=== PATIENT | male | born 1930 | race Caucasian/White ===

== ENCOUNTER 2016-11-02 21:31 | Emergency (ER) | payer MEDICARE ==
[2016-11-02] MEDS ORDERED: MORPHINE SULFATE 4 MG INJ IV ONE (21:41)
[2016-11-02] MEDS ORDERED: Sodium Chloride 0.9% 1000 ML 1,000 ML IV SCH (21:45)
--- NOTE | 2016-11-02 21:46 | ERPHSYRPT ---
- History of Present Illness Time Seen by Provider: 11/02/16 21:43 Historian: patient Exam Limitations: no limitations Physician History: This 86-year-old white male with history of abdominal aortic aneurysm with repair 2, hypercholesterolemia, high blood pressure, COPD, prostate cancer He arrives with complaint of right lower quadrant abdominal pain described as a sharp crampy states it feels just like when he had an aneurysm in the past symptoms for 1-1/2 hours. Patient has not had any vomiting no melena no hematochezia he has no chest pain no shortness of breath. Past medical history includes anemia, hypercholesterolemia, high blood pressure , COPD, prostate cancer Past surgical history includes aneurysmal repair 2 Timing/Duration: today (1-1/2 hours ago) Activities at Onset: none Quality: cramping Abdominal Pain Onset Location: RLQ Pain Radiation: no radiation Severity of Pain-Max: moderate Severity of Pain-Current: moderate Modifying Factors: Improves With: nothing Associated Symptoms: denies symptoms, No back, No chest pain, No diaphoresis, No diarrhea, No fever/chills, No fatigue, No headache, No heartburn, No loss of appetite, No nausea, No neck pain, No rash, No shortness of breath, No syncope, No testicular pain, No vomiting Previous symptoms: same symptoms as today (history of aneurysm in the past with repair) Allergies/Adverse Reactions: No Known Drug Allergies Allergy (Verified 11/02/16 21:46) Home Medications: Amlodipine Besylate 5 mg [Norvasc 5 mg] 5 mg PO DAILY 08/17/13 [History] PANTOPRAZOLE 40 mg Tablet [Protonix 40MG Tablet] 40 mg PO BID 08/17/13 [ History] Simvastatin [Zocor] 20 mg PO HS 08/17/13 [History] Fluticasone/Salmeterol 500/50* [Advair 500-50 Diskus] 1 puff IH BID 02/28/14 [History] Aspirin 81 mg PO DAILY 10/10/14 [History] Clopidogrel Bisulfate 75 mg [PLAVIX 75 MG Tablet] 75 mg PO DAILY 10/10/14 [History] Hx Tetanus, Diphtheria Vaccination/Date Given: No Hx Influenza Vaccination/Date Given: Yes Hx Pneumococcal Vaccination/Date Given: Yes - Review of Systems Constitutional: No Fever, No Chills Eyes: No Symptoms Ears, Nose, & Throat: No Symptoms Respiratory: No Cough, No Dyspnea Cardiac: No Chest Pain, No Edema, No Syncope Abdominal/Gastrointestinal: Abdominal Pain (right lower quadrant abdominal pain) , No Nausea, No Vomiting, No Diarrhea, No Constipation, No Hematemesis, No Hematochezia, No Melena, No Dysphagia, No Appetite Changes Genitourinary Symptoms: No Dysuria Musculoskeletal: No Back Pain, No Neck Pain Skin: No Rash Neurological: No Dizziness, No Focal Weakness, No Sensory Changes Psychological: No Symptoms Endocrine: No Symptoms All Other Systems: Reviewed and Negative - Past Medical History Pertinent Past Medical History: Yes Neurological History: No Pertinent History ENT History: No Pertinent History Cardiac History: Aneurysm, High Cholesterol, Hypertension Respiratory History: COPD Endocrine Medical History: No Pertinent History Musculoskeletal History: Arthritis GI Medical History: No Pertinent History History: No Pertinent History Psycho-Social History: No Pertinent History Male Reproductive Disorders: Prostate Cancer - Past Surgical History Past Surgical History: Yes Neuro Surgical History: No Pertinent History Cardiac: No Pertinent History Respiratory: No Pertinent History Gastrointestinal: No Pertinent History Genitourinary: No Pertinent History Musculoskeletal: No Pertinent History Male Surgical History: No Pertinent History Other Surgical History: ANEURYSM REPAIR X2 - Social History Smoking Status: Former smoker How long have you smoked: 70 years Exposure to second hand smoke: No Drug Use: none Patient Lives Alone: No - Nursing Vital Signs Nursing Vital Signs: Initial Vital Signs Temperature 97.9 F Temperature Source Oral Pulse Rate 72 Respiratory Rate 16 Blood Pressure [Left Arm] 90/61 Pain Intensity 2 - Physical Exam General Appearance: mild distress Eye Exam: PERRL/EOMI, eyes nml inspection Ears, Nose, Throat Exam: normal ENT inspection, pharynx normal, moist mucous membranes Neck Exam: normal inspection, non-tender, supple, full range of motion Respiratory Exam: normal breath sounds, lungs clear, No respiratory distress Cardiovascular Exam: regular rate/rhythm, normal heart sounds Gastrointestinal/Abdomen Exam: soft, normal bowel sounds, tenderness (right lower quadrant tenderness), No guarding, No rebound Back Exam: normal inspection, normal range of motion, No CVA tenderness, No vertebral tenderness Extremity Exam: normal inspection, normal range of motion, pelvis stable Neurologic Exam: alert, oriented x 3, cooperative, normal mood/affect, nml cerebellar function, sensation nml, No motor deficits Skin Exam: normal color, warm, dry SpO2 Interpretation: normal (91%) - Course Nursing assessment & vital signs reviewed: Yes Ordered Tests: Active Orders 24 hr Category Date Time Status IV Insertion STAT Care 11/02/16 21:41 Active IV Insertion STAT Care 11/02/16 21:43 Active ABDOMEN AND PELVIS W/0 CONTRAS [CT] Stat Exams 11/02/16 21:42 Taken AMYLASE Stat Lab 11/02/16 21:45 Completed CBC W DIFF Stat Lab 11/02/16 21:45 Completed CMP Stat Lab 11/02/16 21:45 Completed LIPASE Stat Lab 11/02/16 21:45 Completed UA W/RFX UR CULTURE Stat Lab 11/02/16 21:41 Uncollected Medication Summary Generic Name Dose Route Start Last Admin Trade Name Freq PRN Reason Stop Dose Admin Sodium Chloride 1,000 mls @ 50 mls/hr 11/02/16 21:45 11/02/16 21:53 Sodium Chloride 0.9% 1000 Ml IV 12/02/16 21:44 50 mls/hr .Q20H GONSALO Administration Discontinued Medications Generic Name Dose Route Start Last Admin Trade Name Freq PRN Reason Stop Dose Admin Morphine Sulfate 4 mg 11/02/16 21:41 11/02/16 21:52 Morphine Sulfate 4 Mg Inj IV 11/02/16 21:42 4 mg STAT ONE Administration Morphine Sulfate Confirm 11/02/16 21:50 Morphine Sulfate 4 Mg Inj Administered 11/02/16 21:51 Dose 4 mg .ROUTE .STK-MED ONE Ondansetron HCl 4 mg 11/02/16 21:49 11/02/16 21:53 Zofran 4 Mg/2 Ml Vial IV 11/02/16 21:50 4 mg STAT ONE Administration Ondansetron HCl Confirm 11/02/16 21:50 Zofran 4 Mg/2 Ml Vial Administered 11/02/16 21:51 Dose 4 mg .ROUTE .STK-MED ONE Lab/Rad Data: Laboratory Result Diagrams 11/02/16 21:45 11/02/16 21:45 Laboratory Results 11/02/16 11/02/16 Range/Units 21:45 21:45 WBC 7.2 (4.0-10.5) K/mm3 RBC 4.38 (4.1-5.6) M/mm3 Hgb 14.4 (12.5-18.0) gm/dl Hct 44.0 (42-50) % MCV 100.5 H (78-100) fl MCH 32.9 H (26-32) pg MCHC 32.7 (32-36) g/dl RDW 14.6 H (11.5-14.0) % Plt Count 154 (150-450) K/mm3 MPV 10.2 H (6-9.5) fl Gran % 72.2 H (36.0-66.0) % Lymphocytes % 18.0 L (24.0-44.0) % Monocytes % 8.9 (0.0-12.0) % Eosinophils % 0.6 (0.00-5.0) % Basophils % 0.3 (0.0-0.4) % Basophils # 0.02 (0-0.4) Sodium 142 (136-145) mEq/L Potassium 4.0 (3.5-5.1) mEq/L Chloride 105 (98-107) mEq/L Carbon Dioxide 26.4 (21-32) mEq/L Anion Gap 14.4 (5-15) MEQ/L BUN 27 H (9-20) mg/dL Creatinine 1.22 (0.55-1.30) mg/dl Estimated GFR 60 ML/MIN Glucose 105 (70-110) MG/DL Calcium 9.3 (8.5-10.1) mg/dL Total Bilirubin 0.5 (0.2-1.0) mg/dL AST 18 (15-37) U/L ALT 14 (12-78) U/L Alkaline Phosphatase 104 (46-116) U/L Serum Total Protein 7.4 (6.4-8.2) gm/dL Albumin 4.1 (3.4-5.0) g/dL Amylase 61 (25-115) U/L Lipase 95 (73-393) U/L - Progress Progress: improved Progress Note: 11/02/16 23:08 78-year-old white male with history of to aneurysmal repair surgeries arrives with complaints of right lower quadrant abdominal pain for 1-1/2 hours no nausea no vomiting no fever patient's CT of the abdomen done without contrast shows a impression 1 consistent with low-grade partial bowel obstruction, to diverticulosis 3 dilatation of the entire thoracic abdominal aorta, for left common iliac artery aneurysm 5 right common iliac artery stents 6 right nephrolithiasis 7 cholelithiasis patient's white count is normal hemoglobin 14.8 hematocrit 44 chemistry is normal amylase and lipase within normal limits patient has not provided a urine He does state that his pain was 4-5 on arrival and now is around 2. Patient does state he has not been having vomiting or diarrhea because of his rather complex history of with 2 previous aneurysmal surgeries in the past Will discuss the case with [facility] one call and Dr. Castaneda. 11/02/16 23:49 CT of the abdomen and pelvis as noted above. Patient's family doctor is Dr. Castaneda at [facility]. I contacted Dr. Narayan on-call at [facility] one call service. And discussed the case with Dr. Pathak He has accepted the patient with diagnosis of right lower quadrant pain, partial small bowel obstruction. One call service will call back with bed - Departure Time of Disposition: 23:51 Departure Disposition: Transfer ([facility] Dr Narayan) Clinical Impression: History of abdominal aortic aneurysm (AAA), Partial small bowel obstruction Abdominal pain Qualifiers: Abdominal location: right lower quadrant Qualified Code(s): R10.31 - Right lower quadrant pain Condition: Fair Critical Care Time: No Referrals: MYRNA CASTLE MD [Primary Care Provider] -
[2016-11-02 21:49] LABS: BASOPHIL % 0.3 % (0.0-0.4); Eosinophil % 0.6 % (0.00-5.0); Granulocytes % 72.2 % (36.0-66.0); Mean Cell Volume 100.5 fl (78-100); Mean Corpuscular Hemoglobin 32.9 pg (26-32); Mean Platelet Volume 10.2 fl (6-9.5); Monocytes % 8.9 % (0.0-12.0); Platelet Count 154 K/mm3 (150-450); Red Blood Count 4.38 M/mm3 (4.1-5.6); Red Cell Distribution Width 14.6 % (11.5-14.0); White Blood Count 7.2 K/mm3 (4.0-10.5)
[2016-11-02] MEDS ORDERED: Zofran 4 MG/2 ML VIAL IV ONE (21:49)
[2016-11-02] MEDS ORDERED: MORPHINE SULFATE 4 MG INJ ONE (21:50)
[2016-11-02] MEDS ORDERED: Sodium Chloride 0.9% 1000 ML 1,000 ML ONE (21:50)
[2016-11-02] MEDS ORDERED: Zofran 4 MG/2 ML VIAL ONE (21:50)
[2016-11-02 22:15] LABS: ALBUMIN 4.1 g/dL (3.4-5.0); ANION GAP 14.4 MEQ/L (5-15); BILIRUBIN,TOTAL 0.5 mg/dL (0.2-1.0); Carbon Dioxide 26.4 mEq/L (21-32); Total Protein 7.4 gm/dL (6.4-8.2)
[2016-11-03 02:39] VITALS: BP 104/57; PULSE 64; O2SAT 97
--- NOTE | 2016-11-03 09:35 | XRAY ---
Indication: Right lower quadrant pain. Multiple contiguous axial images obtained through the abdomen and pelvis without contrast as ordered. Comparison: May 24, 2016. Lung bases again demonstrates mild bibasilar fibrosis/scarring. Heart is not enlarged. Descending aorta remains abnormally enlarged and tortuous with a maximum diameter of 5 cm at the level of the diaphragmatic hiatus. Abdominal aorta again arteriosclerotic and abnormally enlarged along its entire course again measuring up to 4.1 cm in diameter. Stable left common iliac saccular-like aneurysm with maximum diameter 3.3 cm. There remains right common iliac stent graft. Lack of IV contrast precludes further evaluation of these vascular structures. Stomach is now distended with fluid/fluid. Noncontrasted bowel loops are again fluid distended, less than before, with fluid leveling. Transition point again suspected in the central abdomen concerning for obstruction. Colon now demonstrates now mild diffuse scattered colonic fecal debris with again diffuse scattered diverticulosis. No free fluid/air. Stable gallstones, bilateral renal cysts, nonobstructing punctate right renal calculus, and prostate radiation seeds. Pancreas again fatty replaced. Remaining liver, spleen, adrenal glands, kidneys, and urinary bladder appear unremarkable for noncontrast exam. Osseous structures demonstrates osteopenia, multilevel degenerative spondylosis, and marked levorotoscoliosis unchanged. Impression: 1. Again fluid distended small bowel loops with transition point suspected in the central abdomen concerning for partial obstruction. 2. 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 Lack of IV contrast precludes further characterization. 3. New fecal stasis. 4. Again incidental colonic diverticulosis, gallstones, bilateral renal cysts, and nonobstructing right renal micro-calculus. Comment: Preliminary interpretation was made by [facility]. No critical discrepancy. CTDI 23.27
== END 2016-11-03 02:20 | disposition short-term general hospital (02) ==
LOC: ED 21:31
DX: R10.31 Right lower quadrant pain (principal); Z87.898 Personal history of other specified conditions; E78.00 Pure hypercholesterolemia, unspecified; I10 Essential (primary) hypertension; J44.9 Chronic obstructive pulmonary disease, unspecified; C61 Malignant neoplasm of prostate; Z79.899 Other long term (current) drug therapy
CPT/HCPCS: 36000; 36415; 74176; 80053; 82150; 83690; 85025; 96360; 96361; 96374; 96375; 99285; J2270; J2405

== ENCOUNTER 2017-06-13 19:32 | Emergency (ER) | payer MEDICARE ==
[2017-06-13 19:55] LABS: BASOPHIL % 0.3 % (0.0-0.4); Basophil (Absolute #) 0.03 (0-0.4); Eosinophil (Absolute #) 0.09 (0-0.5); Granulocyte Absolute (ANC) 7.53 (1.4-6.9); Granulocytes % 80.3 % (36.0-66.0); Hematocrit 33.7 % (42-50); Hemoglobin 10.5 gm/dl (12.5-18.0); Lymphocyte (Absolute #) 0.79 (1.0-4.6); Lymphocytes % 8.4 % (24.0-44.0); Mean Cell Volume 101.2 fl (78-100); Mean Corpuscular Hemoglobin 31.5 pg (26-32); Mean Corpuscular Hgb Concent. 31.2 g/dl (32-36); Mean Platelet Volume 10.2 fl (6-9.5); Monocyte (Absolute #) 0.94 (0.0-1.3); Platelet Count 189 K/mm3 (150-450); Red Blood Count 3.33 M/mm3 (4.1-5.6); Red Cell Distribution Width 14.5 % (11.5-14.0); White Blood Count 9.4 K/mm3 (4.0-10.5)
[2017-06-13] MEDS ORDERED: SUBLIMAZE 100 MCG/2 ML IV ONE (20:00)
[2017-06-13] MEDS ORDERED: Sodium Chloride 0.9% 1000 ML 1,000 ML IV SCH (20:00)
[2017-06-13] MEDS ORDERED: LOPRESSOR 5 MG/5 ML INJECTION IV ONE ×2 (20:01→20:05)
[2017-06-13] MEDS ORDERED: Sodium Chloride 0.9% 1000 ML 1,000 ML ONE (20:01)
[2017-06-13] MEDS ORDERED: SUBLIMAZE 100 MCG/2 ML ONE (20:05)
[2017-06-13 20:18] LABS: ALBUMIN 3.2 g/dL (3.4-5.0); ALKALINE PHOSPHATASE 105 U/L (46-116); BLOOD UREA NITROGEN 14 mg/dL (9-20); CHLORIDE 101 mEq/L (98-107); Calcium 8.6 mg/dL (8.5-10.1); Carbon Dioxide 28.8 mEq/L (21-32); Creatinine 1 1.02 mg/dl (0.55-1.30); EST GLOMERULAR FILTRATION RATE > 60 ML/MIN; Glucose 142 MG/DL (70-110); Potassium 3.7 mEq/L (3.5-5.1); SGOT/AST 22 U/L (15-37); SGPT/ALT 18 U/L (12-78); SODIUM 139 mEq/L (136-145); Total Protein 7.2 gm/dL (6.4-8.2)
--- NOTE | 2017-06-13 20:18 | ERPHSYRPT ---
- History of Present Illness Time Seen by Provider: 06/13/17 19:49 Source: patient, family ( and daughter) Patient Subjective Stated Complaint: pt states he began having increased pain tonight while eating supper. states he has chronic back pain and this pain the same in nature but increased Triage Nursing Assessment: pt alert and oriented, asnwers questions approp. pt short of breath at times. moves bilat upper and lower ext without difficulty, Physician History: CC: left back pain Hx: 87 y/o patient of [facility] Ramirez, and Ras. He had prior abdominal aortic stenting per Dr Velásquez at [place]. Subsequently last week he had TAD and was treated medically at [facility]. He went home. Has been anxious per family. He has chronic pain. Pain worsened around 6PM and they brought him to ER. No chest pain. Pain is in the left lower back area. He has taken all of his scheduled blood pressure medications already today. No fall or injury. Pain is moderate. Family state he gets very anxious and they are not eager for him to have much opioids. Allergies/Adverse Reactions: No Known Drug Allergies Allergy (Verified 06/13/17 19:55) Home Medications: PANTOPRAZOLE 40 mg Tablet [Protonix 40MG Tablet] 40 mg PO BID 08/17/13 [ History] Simvastatin [Zocor] 10 mg PO HS 08/17/13 [History] Fluticasone/Salmeterol 500/50* [Advair 500-50 Diskus] 1 puff IH BID 02/28/14 [History] Aspirin 81 mg PO DAILY 10/10/14 [History] Bicalutamide [Casodex] 50 mg PO DAILY 06/13/17 [History] Clopidogrel Bisulfate 75 mg [PLAVIX 75 MG Tablet] 75 mg PO DAILY 06/13/17 [History] Ferrous Sulfate 325 mg PO DAILY 06/13/17 [History] Lisinopril [Zestril 40 mg] 40 mg PO DAILY 06/13/17 [History] Metoprolol Tartrate 50 mg [Lopressor 50 MG] 50 mg PO BID 06/13/17 [History ] Nystatin 60 ml [Nystatin SUSPENSION 60 ML] 5 ml PO QID 06/13/17 [History] Hx Tetanus, Diphtheria Vaccination/Date Given: Yes Hx Influenza Vaccination/Date Given: Yes Hx Pneumococcal Vaccination/Date Given: Yes Immunizations Up to Date: Yes - Review of Systems Constitutional: No Fever, No Chills Eyes: No Symptoms Ears, Nose, & Throat: No Symptoms Respiratory: No Cough, No Dyspnea Cardiac: No Chest Pain Abdominal/Gastrointestinal: Constipation (took stool softener yesterday), No Abdominal Pain, No Nausea, No Vomiting, No Diarrhea Genitourinary Symptoms: No Dysuria, No Hematuria Neurological: No Focal Weakness, No Parasthesia All Other Systems: Reviewed and Negative - Past Medical History Pertinent Past Medical History: Yes Neurological History: No Pertinent History ENT History: No Pertinent History Cardiac History: Aneurysm, High Cholesterol, Hypertension Respiratory History: COPD Endocrine Medical History: No Pertinent History Musculoskeletal History: Arthritis GI Medical History: No Pertinent History History: No Pertinent History Psycho-Social History: No Pertinent History Male Reproductive Disorders: Prostate Cancer Other Medical History: TAD - Past Surgical History Past Surgical History: Yes Neuro Surgical History: No Pertinent History Cardiac: No Pertinent History Respiratory: No Pertinent History Gastrointestinal: No Pertinent History Genitourinary: No Pertinent History Musculoskeletal: No Pertinent History Male Surgical History: No Pertinent History Other Surgical History: AAA stenting - Social History Smoking Status: Former smoker How long have you smoked: 70 years Exposure to second hand smoke: No Drug Use: none Patient Lives Alone: No - Nursing Vital Signs Nursing Vital Signs: Initial Vital Signs Temperature 97.5 F 06/13/17 19:39 Pulse Rate 74 06/13/17 19:39 Respiratory Rate 20 06/13/17 19:39 Blood Pressure 188/105 06/13/17 19:39 O2 Sat by Pulse Oximetry 96 06/13/17 19:39 Pain Scale Pain Intensity [Left Lower 8 Back] Pain Intensity 4 - Physical Exam General Appearance: alert Eye Exam: PERRL/EOMI Ears, Nose, Throat Exam: normal ENT inspection, moist mucous membranes Neck Exam: normal inspection, non-tender, supple Respiratory Exam: normal breath sounds Cardiovascular Exam: regular rate/rhythm, other (1+ femoral pulses bilateral) Gastrointestinal/Abdomen Exam: soft, No tenderness, No distention, No mass, No guarding Male Genitalia Exam: normal genitalia Back Exam: normal inspection, No vertebral tenderness, No point tenderness Extremity Exam: normal inspection, normal range of motion Neurologic Exam: alert, oriented x 3, cooperative, cloud services architect II-XII nml as tested, sensation nml, No motor deficits Skin Exam: warm, dry, No rash SpO2 Interpretation: normal SpO2: 97 Oxygen Delivery: Room Air - Course Nursing assessment & vital signs reviewed: Yes EKG Interpreted by Me: RATE (72), Sinus Rhythm, NORMAL AXIS, NORMAL INTERVALS ( QTc 435), Non-specific ST Changes Ordered Tests: Active Orders 24 hr Category Date Time Status Motor Vehicle License Clerk STAT Care 06/13/17 19:49 Active Clean Catch Urine Specimen STAT Care 06/13/17 20:01 Active EKG-ER Only STAT Care 06/13/17 19:49 Active IV Insertion STAT Care 06/13/17 19:49 Active Pulse Oximetry (ED) STAT Care 06/13/17 19:49 Active CHEST 1 VIEW (PORTABLE) Stat Exams 06/13/17 20:11 Completed CBC W DIFF Stat Lab 06/13/17 19:45 Completed CMP Stat Lab 06/13/17 19:45 Completed PROTIME WITH INR Stat Lab 06/13/17 20:04 Completed PTT Stat Lab 06/13/17 20:04 Completed TROPONIN Q3H Lab 06/13/17 20:00 Completed TROPONIN Q3H Lab 06/13/17 23:15 Ordered TROPONIN Q3H Lab 06/14/17 02:15 Ordered TROPONIN Q3H Lab 06/14/17 05:15 Ordered TROPONIN Q3H Lab 06/14/17 08:15 Ordered UA W/ MICROSCOPIC Stat Lab 06/13/17 20:20 Completed Medication Summary Generic Name Dose Route Start Last Admin Trade Name Freq PRN Reason Stop Dose Admin Sodium Chloride 1,000 mls @ 50 mls/hr 06/13/17 20:00 06/13/17 20:10 Sodium Chloride 0.9% 1000 Ml IV 07/13/17 19:59 50 mls/hr .Q20H GONSALO Administration Discontinued Medications Generic Name Dose Route Start Last Admin Trade Name Freq PRN Reason Stop Dose Admin Enalaprilat 1.25 mg 06/13/17 20:42 06/13/17 20:46 Vasotec I.V. 2.5 Mg IV 06/13/17 20:43 1.25 mg STAT ONE Administration Enalaprilat Confirm 06/13/17 20:44 Vasotec I.V. 2.5 Mg Administered 06/13/17 20:45 Dose 2.5 mg IV .STK-MED ONE Fentanyl Citrate 25 mcg 06/13/17 20:00 06/13/17 20:09 Sublimaze 100 Mcg/2 Ml IV 06/13/17 20:01 25 mcg STAT ONE Administration Fentanyl Citrate Confirm 06/13/17 20:05 Sublimaze 100 Mcg/2 Ml Administered 06/13/17 20:06 Dose 100 mcg .ROUTE .STK-MED ONE Metoprolol Tartrate 2.5 mg 06/13/17 20:01 06/13/17 20:10 Lopressor 5 Mg/5 Ml Injection IV 06/13/17 20:02 2.5 mg STAT ONE Administration Metoprolol Tartrate Confirm 06/13/17 20:05 Lopressor 5 Mg/5 Ml Injection Administered 06/13/17 20:06 Dose 5 mg IV .STK-MED ONE Lab/Rad Data: Laboratory Result Diagrams 06/13/17 19:45 06/13/17 19:45 Laboratory Results 06/13/17 06/13/17 06/13/17 Range/Units 20:20 20:04 20:00 WBC (4.0-10.5) K/mm3 RBC (4.1-5.6) M/mm3 Hgb (12.5-18.0) gm/dl Hct (42-50) % MCV (78-100) fl MCH (26-32) pg MCHC (32-36) g/dl RDW (11.5-14.0) % Plt Count (150-450) K/mm3 MPV (6-9.5) fl Gran % (36.0-66.0) % Lymphocytes % (24.0-44.0) % Monocytes % (0.0-12.0) % Eosinophils % (0.00-5.0) % Basophils % (0.0-0.4) % Basophils # (0-0.4) INR 1.17 (0.8-3.0) APTT 31.5 (24.1-36.1) SECONDS Sodium (136-145) mEq/L Potassium (3.5-5.1) mEq/L Chloride (98-107) mEq/L Carbon Dioxide (21-32) mEq/L Anion Gap (5-15) MEQ/L BUN (9-20) mg/dL Creatinine (0.55-1.30) mg/dl Estimated GFR ML/MIN Glucose (70-110) MG/DL Calcium (8.5-10.1) mg/dL Total Bilirubin (0.2-1.0) mg/dL AST (15-37) U/L ALT (12-78) U/L Alkaline Phosphatase (46-116) U/L Troponin I < 0.017 (0.000-0.056) ng/ml Serum Total Protein (6.4-8.2) gm/dL Albumin (3.4-5.0) g/dL Ur Collection Type CCMS Urine Color YELLOW (YELLOW) Urine Appearance CLEAR (CLEAR) Urine pH 7.0 (5-6) Ur Specific [place] 1.010 (1.005-1.025) Urine Protein TRACE (Negative) Urine Ketones NEGATIVE (NEGATIVE) Urine Blood TRACE NON-HEM (0-5) Blake/ul Urine Nitrite NEGATIVE (NEGATIVE) Urine Bilirubin NEGATIVE (NEGATIVE) Urine Urobilinogen 1 (0-1) mg/dL Ur Leukocyte Esterase NEGATIVE (NEGATIVE) Urine Microscopic RBC 2-5 (0-2) /HPF Urine Microscopic WBC 0-2 (0-5) /HPF Ur Epithelial Cells RARE (FEW) /HPF Urine Bacteria RARE (NEGATIVE) /HPF Urine Mucus SLIGHT (NEGATIVE) /HPF Urine Culture Reflexed NO (NO) Urine Glucose NEGATIVE (NEGATIVE) mg/dL Specimen Received 06-13-17202906/13/17 06/13/17 Range/Units 19:45 19:45 WBC 9.4 (4.0-10.5) K/mm3 RBC 3.33 L (4.1-5.6) M/mm3 Hgb 10.5 L (12.5-18.0) gm/dl Hct 33.7 L (42-50) % MCV 101.2 H (78-100) fl MCH 31.5 (26-32) pg MCHC 31.2 L (32-36) g/dl RDW 14.5 H (11.5-14.0) % Plt Count 189 (150-450) K/mm3 MPV 10.2 H (6-9.5) fl Gran % 80.3 H (36.0-66.0) % Lymphocytes % 8.4 L (24.0-44.0) % Monocytes % 10.0 (0.0-12.0) % Eosinophils % 1.0 (0.00-5.0) % Basophils % 0.3 (0.0-0.4) % Basophils # 0.03 (0-0.4) INR (0.8-3.0) APTT (24.1-36.1) SECONDS Sodium 139 (136-145) mEq/L Potassium 3.7 (3.5-5.1) mEq/L Chloride 101 (98-107) mEq/L Carbon Dioxide 28.8 (21-32) mEq/L Anion Gap 13.0 (5-15) MEQ/L BUN 14 (9-20) mg/dL Creatinine 1.02 (0.55-1.30) mg/dl Estimated GFR > 60 ML/MIN Glucose 142 H (70-110) MG/DL Calcium 8.6 (8.5-10.1) mg/dL Total Bilirubin 0.60 (0.2-1.0) mg/dL AST 22 (15-37) U/L ALT 18 (12-78) U/L Alkaline Phosphatase 105 (46-116) U/L Troponin I (0.000-0.056) ng/ml Serum Total Protein 7.2 (6.4-8.2) gm/dL Albumin 3.2 L (3.4-5.0) g/dL Ur Collection Type Urine Color (YELLOW) Urine Appearance (CLEAR) Urine pH (5-6) Ur Specific [place] (1.005-1.025) Urine Protein (Negative) Urine Ketones (NEGATIVE) Urine Blood (0-5) Blake/ul Urine Nitrite (NEGATIVE) Urine Bilirubin (NEGATIVE) Urine Urobilinogen (0-1) mg/dL Ur Leukocyte Esterase (NEGATIVE) Urine Microscopic RBC (0-2) /HPF Urine Microscopic WBC (0-5) /HPF Ur Epithelial Cells (FEW) /HPF Urine Bacteria (NEGATIVE) /HPF Urine Mucus (NEGATIVE) /HPF Urine Culture Reflexed (NO) Urine Glucose (NEGATIVE) mg/dL Specimen Received - Progress Progress Note: 06/13/17 21:00 He has been medicated with fentanyl, metoprolol, vasotec. Still some HTN. Appears more comfortable. Explained to daughter and we are awaiting tests and will consult his doctor as to disposition. 06/13/17 22:16 Pt stable. They are worried about his constipation. Called Dr Ely for [facility]. He advised release home and increase metoprolol to 75mg BID and calll in AM for office follow up. Instr given to pt and . There is no operative or vascular procedure for his chronic aortic dissection and BP management is the goal. Also discussed with daughter the possibililty of hospice. Counseled pt/family regarding: lab results, diagnosis, need for follow-up, rad results - Departure Time of Disposition: 22:17 Departure Disposition: Home Clinical Impression: Back pain, Chronic thoracic aortic dissection, Hypertension Condition: Stable Critical Care Time: No Referrals: MYRNA CASTLE MD [Primary Care Provider] - HEIDY VELÁSQUEZ [CONSULTING PHYSICIAN] - Instructions: Endovascular Repair of Abdominal Aortic Aneurys, High Blood Pressure Additional Instructions: Increase metoprolol to 75mg twice a day. May be 1 1/2 tablets twice a day. Call in aM to see DR Velásquez in office. Return for problems or concerns. Take docusate stool softener twice a day.
[2017-06-13 20:25] LABS: INR 1.17 (0.8-3.0)
[2017-06-13 20:28] LABS: PTT 31.5 SECONDS (24.1-36.1)
[2017-06-13 20:32] LABS: Appearance CLEAR (CLEAR); Bilirubin NEGATIVE (NEGATIVE); Blood TRACE NON-HEM Ery/ul (0-5); Glucose NEGATIVE (NEGATIVE); Ketones NEGATIVE (NEGATIVE); Leukocyte Esterase NEGATIVE (NEGATIVE); Nitrite NEGATIVE (NEGATIVE); Protein,Urine Dip TRACE (Negative); Urobilinogen 1 mg/dL (0-1)
[2017-06-13 20:33] LABS: Bacteria RARE /HPF (NEGATIVE); Epithelial Cells RARE /HPF (FEW); Mucus SLIGHT /HPF (NEGATIVE); WBC 0-2 /HPF (0-5)
[2017-06-13] MEDS ORDERED: VASOTEC I.V. 2.5 MG IV ONE ×2 (20:42→20:44)
[2017-06-13 20:57] VITALS: PULSE 64
--- NOTE | 2017-06-13 21:16 | XRAY ---
Indication: Chest pain. Comparison: October 10, 2014. Portable chest remains clear. Heart is not enlarged for AP portable technique. Bony thorax intact again with mild osteopenia, degenerative changes, and severe dextrorotoscoliosis. No new/acute findings. Impression: Stable nonacute chest with chronic features.
[2017-06-13] MEDS ORDERED: MILK OF MAGNESIA 30 ML PO ONE (22:15)
[2017-06-13] MEDS ORDERED: MILK OF MAGNESIA 30 ML ONE (22:20)
[2017-06-13 22:55] VITALS: BP 168/89; O2SAT 95
== END 2017-06-13 22:55 | disposition home or self-care (01) ==
LOC: ED 19:32
DX: M54.5 Low back pain (principal); G89.29 Other chronic pain; F45.42 Pain disorder with related psychological factors; Z98.890 Other specified postprocedural states; I10 Essential (primary) hypertension; K59.00 Constipation, unspecified; J44.9 Chronic obstructive pulmonary disease, unspecified; M19.90 Unspecified osteoarthritis, unspecified site; Z85.46 Personal history of malignant neoplasm of prostate; Z87.891 Personal history of nicotine dependence; Z79.899 Other long term (current) drug therapy
CPT/HCPCS: 36000; 36415; 71045; 80053; 81000; 84484; 85025; 85610; 85730; 93005; 93041; 96360; 96374; 96375; 99284; J3010; A9270-GY